=== PATIENT | male | born 1960 | race Caucasian/White ===

== ENCOUNTER 2022-01-24 16:54 | Emergency (ER) | payer OTHER ==
[~2022-01-24] VITALS: Ht 175.3 cm; Wt 111.1 kg
== END 2022-01-25 13:04 | disposition home or self-care (01) ==
LOC: ED 16:54
DX: F31.9 Bipolar disorder, unspecified (principal)
CPT/HCPCS: 36415; 80053; 80178; 84443; 85025; 96372; 99285; G0480; J1630; J2060; U0003